=== PATIENT | male | born 1965 | race Asian ===

== ENCOUNTER 2019-08-04 08:59 | Emergency (ER) | payer MEDICARE, MEDICAID ==
[~2019-08-04] VITALS: Ht 152.4 cm; Wt 54.8 kg
[2019-08-04 09:07] VITALS: BP 121/73
[2019-08-04] MEDS ORDERED: HYDR-4353 PO (11:39)
== END 2019-08-04 12:14 | disposition home or self-care (01) ==
LOC: ER 08:59
DX: S20.222A Contusion of left back wall of thorax, initial encounter (principal); Z56.0 Unemployment, unspecified; W01.0XXA Fall on same level from slipping, tripping and stumbling without subsequent striking against object, initial encounter; Y93.89 Activity, other specified; Y92.89 Other specified places as the place of occurrence of the external cause; Y99.8 Other external cause status
CPT/HCPCS: 99284

== ENCOUNTER 2025-03-08 21:50 | Emergency (ER) | payer MEDICARE, MEDICAID ==
[~2025-03-08] VITALS: Ht 154.9 cm; Wt 53.4 kg
--- NOTE | 2025-03-08 22:22 | Physician Documentation ---
History of Present Illness ~ Stated Complaint: WRIST LAC Time Seen by MD: 22:47 OK to notify your PCP?: Yes Source: patient Mode of Arrival: POV Exam Limitations: no limitations HPI 59-year-old male presents with wrist laceration which happened 5 hours ago when he was making dinner and accidentally cut himself. He has been holding pressure and yet it is still bleeding. Bleeding is controlled with pressure. He has not taken any coagulate medications. He denies any HI or SI. Tetanus Within 5 Years: Yes Medication Reconciliation Allergies: Coded Allergies: ibuprofen (Verified Allergy, Unknown, 03/08/25) NAUSEA AND VOMITING Past Medical History Past Medical History: No Pertinent History Past Surgical History: noncontributory Lives In: Home Occupation: unemployed Review of Systems All Other Systems at this time: Reviewed and Negative Physical Exam Vital Signs: RN Vital Signs have been reviewed: Yes Pulse Oximetry Reflects: adequate oxygenation Physical Exam General: Alert, no distress. HEENT: No injection, moist mucous membranes. Neck: Full range of motion. Respiratory: No respiratory distress, equal chest rise and fall. Chest: No accessory muscle use. Cardiovascular: Regular rate and rhythm. Gastrointestinal: Nondistended. Extremities: Normal range of motion, no deformity. Neurologic: Oriented x4. Psychiatric: Normal mood and affect. Skin: 2cm Laceration to volar left wrist, bleeding controlled with pressure. Procedures Laceration/Wound Repair Laceration : Anesthesia: Lidocaine w/ Epi Volume Anesthetic (mls): 3 Prep: irrigated by nurse Debrided: minimal Undermining: none Margins: flaps aligned Foreign Body: not identified Repaired: skin Wound Repaired With: sutures Suture Size/Type: 3-0, ethilon Number of Superficial Sutures: 2 Layer Closure?: No Tolerated Procedure Well?: yes, no complications Procedure Note horizontal mattress suture Progress Results/Orders Results/Orders Completed Orders - DOUG BARTLETT MD Lidocaine 1% W/Epi 1:100,000 (Xylocaine (03/09/25 00:05) Vital Signs 03/08/25 03/08/25 03/08/25 22:14 22:55 22:58 Temp 97.8 97.8 Pulse 76 69 Resp 16 15 B/P (MAP) 110/63 109/62 (78) Pulse Ox 97 98 O2 Flow Rate 0 0 Medical Decision Making Findings 59 year old male with clean laceration to L wrist, no apparent neurovascular or tendon injury given fill ROM/strength. Cleansed wound, sutured without co mplication, discharged with return precautions. Differential Dx:Considerations: Include: Abrasion, Laceration, Neurovascular injury Departure Disposition: 01 HOME / SELF CARE / HOMELESS Impression: Primary Impression: Laceration Condition: Stable Discharge Instructions: Laceration Care, Adult, [id number] Referrals: NO PRIMARY CARE PROVIDER (PCP) Education Educated: Patient Educated regarding: diagnosis, treatment, prognosis, need for follow up Additional Comment Medical Screen Exam This patient recieved a medical screening examination. After reviewing the individual's medical complaints with presenting symptoms and performing an appropriate physical examination, it was determined that no immediate life- threatening emergency medical condition is present. This individual is also not a women having contractions. Signature Scribe Signature: . Attestation: . LAZARO WATTS Mar 08, 2025 22:22 DOUG BARTLETT MD Mar 09, 2025 01:15
[2025-03-09] MEDS ORDERED: LIDOcaine 1% W/epiNEPHrine 1:100,000 20ml vial SQ ONE (00:05)
[2025-03-09 01:26] VITALS: BP 130/68; PULSE 78; RESP 17; TEMP 97.8; O2SAT 100
== END 2025-03-09 01:28 | disposition home or self-care (01) ==
LOC: ER 21:50
DX: S61.512A Laceration without foreign body of left wrist, initial encounter (principal); Z88.6 Allergy status to analgesic agent; Z56.0 Unemployment, unspecified; W26.8XXA Contact with other sharp object(s), not elsewhere classified, initial encounter; Y93.89 Activity, other specified; Y92.89 Other specified places as the place of occurrence of the external cause; Y99.8 Other external cause status
CPT/HCPCS: 12001; 99282; A6402; Z7610; A6449